=== PATIENT | male | born 1995 | race Caucasian/White ===

== ENCOUNTER 2020-01-26 17:15 | Emergency (ER) | payer BC ==
--- NOTE | 2020-01-26 18:03 | ER Document Report ---
ED Medical Screen (RME) - General Chief Complaint: Fever Stated Complaint: FEVER Time Seen by Provider: 01/26/20 17:50 Mode of Arrival: Wheelchair Notes: Patient is a 24-year-old male comes emergency room with complaint of cough. And vomiting. Patient states that he was tested positive for coronavirus 10 days ago. He went home and self quarantine for the past 10 days and for that. Time he has been having nausea with vomiting and coughing. Patient states he has been unable any food or fluid down for the past several days and he is going to the point where he was so weak he had to make a decision to call EMS to come in. He reports that once EMS got here and gave him a half a liter of fluids he started feeling a little better. He has had fevers off and on over the course of 10 days. He lives at home with his who is not tested positive for the flu and the virus as of yet. 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 He stopped smoking only 10 days ago she is patient's vital signs show heart rate currently in ER 128 bpm, saturations 92% saline no oxygen. Temperature currently is 100.8 and please record her for 130 following. Patient is a frail-appearing 25-year-old male no apparent distress does not appear ill. Cardiac: As stated patient is a tachycardic rate 120 beats a minute. There is no murmur auscultated at this time. Lungs: Bilateral breath sounds decreased throughout faint rhonchi scattered in the upper lobes bilaterally. Isolated 92% saturation on room air. Abdomen: Bowel sounds are present all 4 quads he is nontender to palpate at this time. I have greeted and performed a rapid initial assessment of this patient. A comprehensive ED assessment and evaluation of the patient, analysis of test results and completion of the medical decision making process will be conducted by additional ED providers. Dictation of this chart was performed using voice recognition software; therefore, there may be some unintended grammatical errors. - Related Data Allergies/Adverse Reactions: No Known Allergies Allergy (Unverified 01/26/20 17:48) Past Medical History - Social History Frequency of alcohol use: None Drug Abuse: None
[2020-01-26 19:05] LABS: HEMATOCRIT 37.8 % (37.9-51.0); HEMOGLOBIN 13.2 g/dL (13.5-17.0); MEAN CORPUSCULAR HEMOGLOBIN 27.2 pg (27.0-33.4); MEAN CORPUSCULAR VOLUME 78 fl (80-97); PLATELET COUNT 370 10^3/uL (150-450); RED BLOOD COUNT 4.86 10^6/uL (4.35-5.55); RED CELL DISTRIBUTION WIDTH 13.4 % (11.5-14.0); WHITE BLOOD COUNT 14.3 10^3/uL (4.0-10.5)
--- NOTE | 2020-01-26 19:16 | RADIOLOGY REPORT (SQ) ---
EXAM DESCRIPTION: CHEST SINGLE VIEW IMAGES COMPLETED DATE/TIME: 01/26/2020 6:41 pm REASON FOR STUDY: fever cough Covid Pos COMPARISON: None. EXAM PARAMETERS: NUMBER OF VIEWS: One view. TECHNIQUE: Single frontal radiographic view of the chest acquired. RADIATION DOSE: NA LIMITATIONS: None. FINDINGS: LUNGS AND PLEURA: Patchy opacification in the lung bases, left more than right. MEDIASTINUM AND HILAR STRUCTURES: No masses. Contour normal. HEART AND VASCULAR STRUCTURES: Heart normal in size. Normal vasculature. BONES: No acute findings. HARDWARE: None in the chest. OTHER: No other significant finding. IMPRESSION: Likely COVID-19 pneumonia. TECHNICAL DOCUMENTATION: JOB ID: [id number] 2010 [employer]- All Rights Reserved Reading location - IP/workstation name: [email or web address]
[2020-01-26 19:23] LABS: ABSOLUTE LYMPHOCYTES# (MANUAL) 1.1 10^3/uL (0.5-4.7); ABSOLUTE MONOCYTES # (MANUAL) 0.1 10^3/uL (0.1-1.4); BASOPHILS % (MANUAL) 0 % (0-2); EOSINOPHILS % (MANUAL) 0 % (0-6); LYMPHOCYTES % (MANUAL) 6 % (13-45); METAMYELOCYTES % (MANUAL) 1 % (0-1); MONOCYTES % (MANUAL) 1 % (3-13); SEGMENTED NEUTROPHILS % (MAN) 90 % (42-78); TOTAL CELLS COUNTED 100
[2020-01-26 19:24] LABS: PLATELET COMMENT ADEQUATE
[2020-01-26 19:26] LABS: ALBUMIN 4.3 g/dL (3.5-5.0); ALKALINE PHOSPHATASE 114 U/L (38-126); ANION GAP 12 (5-19); ASPARTATE AMINO TRANSFERASE 58 U/L (17-59); BILIRUBIN,DIRECT 1.1 mg/dL (0.0-0.4); BILIRUBIN,TOTAL 2.7 mg/dL (0.2-1.3); BLOOD UREA NITROGEN 16 mg/dL (7-20); CALCIUM 9.5 mg/dL (8.4-10.2); CARBON DIOXIDE 28 mmol/L (22-30); CHLORIDE 92 mmol/L (98-107); GLUCOSE 128 mg/dL (75-110); POTASSIUM 3.4 mmol/L (3.6-5.0); TOTAL PROTEIN 8.5 g/dL (6.3-8.2)
[2020-01-26] MEDS ORDERED: ACETAMINOPHEN 325 MG TABLET PO ONE (20:24)
[2020-01-26] MEDS ORDERED: DEXAMETHASONE SOD PHOS INJ 10 MG/1 ML VIAL IV ONE (20:41)
[2020-01-26] MEDS ORDERED: NORMAL SALINE 1000 ML 1,000 ML IV ONE (20:42)
--- NOTE | 2020-01-26 20:43 | ER Document Report ---
ED General - General Chief Complaint: Fever Stated Complaint: FEVER Time Seen by Provider: 01/26/20 17:50 Mode of Arrival: Wheelchair - HPI Notes: Chief Complaint: Fever, Covid Historian: History obtained from patient HPI: This is a 24-year-old male presents to the ED complaining of fevers, cough, fatigue x10 days since being diagnosed with Covid. continious n/v per the pt for the past week. associated dry cough but denies SOB or CP. tried zofran and mucinex w/o relief. EMS gave pt 500ml IV NS and po tylenol and pt says he feels 100% better than he has in the past 10 days. ROS: Constitutional: Fevers HEENT: no SINGH, sore throat, or vision changes. CV: no chest pain or palpitations. Resp: Cough GI: positive n/v. no abdom pain. : no dysuria, hematuria, or incont. MSK: no back pain, no joint swelling/redness. Skin: no rashes or itching. Neuro: no seizures, weakness, numbness, or confusion. Hematological: no ecchymosis or easy bleeding. Endocrine: no polyuria/polydipsia, no heat/cold intolerance. Psych: no SI/HI, AH/VH or memory loss. PMHx: Reviewed and agree as charted by RN. PSHx: Reviewed and agree as charted by RN. SOCHx: Reviewed and agree as charted by RN. FHX: No significant familial comorbid conditions directly related to patient complaint Current Medications: Reviewed and agree with the patient medications as charted by the RN. Allergies: Reviewed and agree with the listed allergies as charted by the RN Physical Exam: Vitals: Reviewed in chart as documented by RN. General: Alert and in NAD. Head: Normocephalic; atraumatic Eyes: PERRLA, Conjunctivae clear sclerae non-icteric bilat ENT: no soft palate swelling or uvular deviation Neck: trachea midline, no unilateral swelling/tenderness/lymphadenopathy CV: tachy 128 in triage. RRR at 93 during my eval. no M/R/G; symmetric distal pulses, pulses 1+. Resp: respirations even, slighlty shallow but unlabored. mild coarseness to bilat lower. GI: abd soft and nondistended. NTTP. normal BS. no masses/HSM. no CVAT bilat MSK: FROM of all extremities. No midline CTL spine tenderness/deformity Skin: warm, moist, good turgor. no rash/lesions Neuro: Alert and oriented X 4. following CN 2-12 intact. no unilateral weakness/numbness Psych: No SI/HI or AH/VH. ED Results: Medical Decision-Making: Medical Decision-making/Differential Diagnosis: Consider various etiologies including but not limited to pneumoniaviral, CAP, Covid, viral syndrome, hypoxia, respiratory failure, strep pharyngitis, viral pharyngitis, other pharyngitis, fadi-tonsillar abscess (unlikely), retropharyng eal abscess (unlikely), Acute Suppurative Otitis media, otalgia, upper respiratory infection, viral syndrome, bronchitis, sinusitis, ect Plan-Per triage they ordered labs, lactate, pro-Serafin, chest x-ray. I will give pt tylenol and continue to monitor. prn supplemental 02. cxr notes covid pneumonia. patchy infiltrates along perimeter. labs reviewed- wbc 14 creatinine/BUN wnl unconcerning electrolyte changes related to dehydration total bili 2.7, suspect this is related to dehydration as pt has no abdominal pain. after IVF and tylenol pts vitals normalized and reports significant improvement in symptoms. O2 sats 96% on RA. pulse 93. afebrile. Pt is feeling much better and wants to attempt to drink fluids. Will give him another 500ml IVF, 10mg decadron IV. IF he continues to improve, will d/c home w/ azithro, steroids, and anti-emetics. extensive discussion w/ the pt regarding signs of hypoxia/SOB to monitor at home that should warrant an immediate return visit to the ER. This course of action was discussed with the patient and/or family. They were amenable to this, verbalized understanding, and were without further questions. - Related Data Allergies/Adverse Reactions: No Known Allergies Allergy (Unverified 01/26/20 17:48) Past Medical History - Social History Smoking Status: Former Smoker Frequency of alcohol use: None Drug Abuse: None Family History: Reviewed & Not Pertinent Physical Exam - Vital signs Vitals: Temp Pulse Resp BP Pulse Ox 98.9 F 96 17 134/80 H 95 01/26/20 20:24 12/18/20 20:24 01/26/20 20:24 01/26/20 20:24 01/26/20 20:24 Course - Vital Signs Vital signs: Temp Pulse Resp BP Pulse Ox 98.5 F 98 18 135/80 H 96 01/26/20 22:25 01/26/20 22:25 01/26/20 22:25 01/26/20 22:25 01/26/20 22:25 - Laboratory Results Result Diagrams: 01/26/20 18:50 01/26/20 18:50 Laboratory Results Interpreted: 01/26/20 01/26/20 18:50 18:50 WBC 14.3 H Hgb 13.2 L Hct 37.8 L MCV 78 L Seg Neuts % (Manual) 90 H Lymphocytes % (Manual) 6 L Monocytes % (Manual) 1 L Abs Neuts (Manual) 13.0 H Sodium 132.0 L Potassium 3.4 L Chloride 92 L Glucose 128 H Total Bilirubin 2.7 H Direct Bilirubin 1.1 H ALT 53 H Total Protein 8.5 H Critical Laboratory Results Reviewed: No Critical Results - Radiology Results Critical Radiology Results Reviewed: No Critical Results - covid pneumonia. Discharge - Discharge Clinical Impression: Pneumonia due to COVID-19 virus Nausea & vomiting Qualifiers: Vomiting type: unspecified Vomiting Intractability: unspecified Qualified Code(s): R11.2 - Nausea with vomiting, unspecified Condition: Stable Disposition: HOME, SELF-CARE Instructions: COVID-19 Guidance for Persons Under Investigation, Vomiting ([facility]) Additional Instructions: take medications as prescribed. drink plenty of water to hydrate. If you feel very short of breath, confused, or any other concerning signs then return to the ER right away. follow up with a primary care doctor in 2 days for a recheck. Prescriptions: Azithromycin 250 mg PO ASDIR #6 tablet Prednisone [Deltasone 20 mg Tablet] 3 tab PO DAILY 5 Days #15 tablet Promethazine HCl [Phenergan 25 mg Tablet] 25 - 50 mg PO ASDIR PRN #12 tablet PRN Reason: Referrals: LAURA GARZA MD [ACTIVE STAFF] - Follow up as needed
[2020-01-26 23:31] VITALS: BP 132/78
== END 2020-01-26 23:28 | disposition home or self-care (01) ==
LOC: ER 17:15
DX: U07.1 COVID-19 (principal); J12.89 Other viral pneumonia; R50.9 Fever, unspecified; R53.83 Other fatigue; R05 Cough; R11.2 Nausea with vomiting, unspecified
CPT/HCPCS: 99284; 96361; 96374; 36415; 87040; 84145; 83605; 85025; 80053; 71045; J7030; J1100